=== PATIENT | male | born 1980 | race African-American/Black ===

== ENCOUNTER 2017-07-29 14:45 | Outpatient (CLI) | payer BC | END 2017-07-29 14:46 | disposition home or self-care (01) | LOC: BICRAD 14:45 | DX: M54.2 Cervicalgia (principal); M54.5 Low back pain; M47.892 Other spondylosis, cervical region | CPT/HCPCS: 72040; 72072; 72100 ==

== ENCOUNTER 2017-10-26 14:17 | Outpatient (CLI) | payer BC, OTHER ==
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
== END 2017-10-26 14:18 | disposition home or self-care (01) ==
LOC: TBSIIMAG 14:17
PROVIDERS: ATTEND Physician Assistant
DX: M54.2 Cervicalgia (principal); M54.5 Low back pain; M51.34 Other intervertebral disc degeneration, thoracic region; R29.898 Other symptoms and signs involving the musculoskeletal system; V89.2XXA Person injured in unspecified motor-vehicle accident, traffic, initial encounter
CPT/HCPCS: 72141; 72146

== ENCOUNTER 2017-10-27 09:44 | Emergency (ER) | payer BC, OTHER ==
[2017-10-27] MEDS ORDERED: Diazepam 5 MG TAB ONE (12:32)
[2017-10-27] MEDS ORDERED: Ketorolac Tromethamine 60 MG/2 ML VIAL ONE (12:32)
[2017-10-27] MEDS ORDERED: Acetaminophen/Codeine 30-300mg Tablet ONE (12:32)
[2017-10-27] MEDS ORDERED: Methocarbamol 500 MG TAB PO SCH (12:45)
== END 2017-10-27 14:47 | disposition home or self-care (01) ==
LOC: ERS 09:44
DX: M62.830 Muscle spasm of back (principal); D64.9 Anemia, unspecified; F41.9 Anxiety disorder, unspecified; J45.909 Unspecified asthma, uncomplicated; N35.9 Urethral stricture, unspecified; Z79.899 Other long term (current) drug therapy
CPT/HCPCS: 96372; J1885

== ENCOUNTER 2018-07-12 09:51 | Outpatient (CLI) | payer BC ==
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
== END 2018-07-12 09:52 | disposition home or self-care (01) ==
LOC: BICRAD 09:51
PROVIDERS: ATTEND Specialist
DX: M47.812 Spondylosis without myelopathy or radiculopathy, cervical region (principal); M47.816 Spondylosis without myelopathy or radiculopathy, lumbar region
CPT/HCPCS: 72050; 72110

== ENCOUNTER 2018-09-13 08:21 | Outpatient (CLI) | payer BC ==
--- NOTE | 2018-09-13 09:03 | RAD ---
RIGHT HIP TWO VIEWS: History: Right hip pain. FINDINGS/IMPRESSION: No fracture, dislocation, or bony destruction is seen. POS: OFF
== END 2018-09-13 08:22 | disposition home or self-care (01) ==
LOC: BICRAD 08:21
PROVIDERS: ATTEND Physical Medicine & Rehabilitation
DX: M25.551 Pain in right hip (principal)

== ENCOUNTER 2019-01-09 10:41 | Emergency (ER) | payer SELFPAY ==
[2019-01-09] MEDS ORDERED: Ketorolac Tromethamine 60 MG/2 ML VIAL ONE (10:56)
[2019-01-09] MEDS ORDERED: Lorazepam 1 MG TAB ONE (12:05)
== END 2019-01-09 12:11 | disposition home or self-care (01) ==
LOC: ERS 10:41
DX: F43.0 Acute stress reaction (principal); G89.29 Other chronic pain; M54.5 Low back pain; E78.5 Hyperlipidemia, unspecified; J45.909 Unspecified asthma, uncomplicated; D64.9 Anemia, unspecified; F41.9 Anxiety disorder, unspecified; E55.9 Vitamin D deficiency, unspecified; Z79.899 Other long term (current) drug therapy; Z79.891 Long term (current) use of opiate analgesic
CPT/HCPCS: 96374; J1885

== ENCOUNTER 2019-01-25 17:26 | Emergency (ER) | payer SELFPAY ==
--- NOTE | 2019-01-25 18:28 | CT ---
CT head noncontrast HISTORY: Altered mental status. FINDINGS: There is no evidence of acute intracranial hemorrhage or infarct. The ventricles appear nor mal in size, shape and position. There is no mass effect or shift of midline structures. Visualized paranasal sinuses remain well aerated. IMPRESSION: No acute intracranial abnormalities are demonstrated.
== END 2019-01-25 18:37 | disposition home or self-care (01) ==
LOC: SCSER 17:26
DX: R41.3 Other amnesia (principal); T42.4X5A Adverse effect of benzodiazepines, initial encounter; F41.9 Anxiety disorder, unspecified
CPT/HCPCS: 70450